=== PATIENT | female | born 1980 | race Caucasian/White ===

== ENCOUNTER 2016-09-12 16:48 | Emergency (ER) | payer SELFPAY ==
[2016-09-12 17:11] VITALS: TEMP 98; BMI 42.3
[2016-09-12] MEDS ORDERED: NS 1,000 ML IV ONE (17:24)
[2016-09-12 18:02] LABS: LEUKOCYTES/URINE NEG (NEGATIVE); NITRITE/URINE NEG (NEGATIVE); RBC/URINE 0-2 (0-5); URINE OCCULT BLOOD NEG (NEG/TRACE); WBC/URINE 0-2 (0-5)
[2016-09-12 18:32] LABS: AUTOMATED BASOPHIL 0.2 % (0-2); AUTOMATED EOSINOPHIL 0.3 % (0-5); AUTOMATED LYMPH 8.3 % (17-44); AUTOMATED MONOCYTE 5.6 % (3-10); AUTOMATED NEUTROPHIL 85.6 % (45-76); MPV 9.1 fL (7.4-10.4)
[2016-09-12 18:35] VITALS: BP 138/62; PULSE 88
[2016-09-12 18:41] LABS: GLUCOSE 96 mg/dL (70-99); SODIUM LEVEL 135 mEq/L (137-146); TOTAL PROTEIN 7.3 G/DL (6.3-8.2)
[2016-09-12 18:49] LABS: BLOOD UREA NITROGEN 10 MG/DL (7-17); CALCIUM 9.1 MG/DL (8.4-10.2); CALCULATED OSMOLALITY 259 MOs/Kg (270-290); CHLORIDE 102 mEq/L (98-107)
--- NOTE | 2016-09-12 18:49 | EDPRACDOC ---
- General Information Chief Complaint: Abdominal Pain Stated Complaint: 12WK PREG/ABD PAIN Time Seen by Provider: 09/12/16 17:20 Information Source: Patient, Family Mode Of Arrival: Car Home Medications: Home Medications Acetaminophen [Mapap] 1,000 mg PO Q8H PRN 09/12/16 Fish Oil/Dha/Epa [Fish Oil 1,200 mg Fish Oil] 1 cap PO DAILY 09/12/16 Vits W-Ca,Fe,FA(<1Mg) [] 1 tab PO DAILY 09/12/16 Allergies/Adverse Reactions: Allergies Allergy/AdvReac Type Severity Reaction Status Date / Time No Known Allergies Allergy Verified 09/12/16 17:08 - History of Present Illness Onset: 0800 HPI: PT SAID THAT SHE IS 14 WEEKS AND HAD A SEVERE PAIN IN HER RIGHT SIDE. THE PT SAID THAT THE PAIN HAS GONE AWAY. SHE HAS NOT YET SEEN AN OBGYN, BUT HAS SEEN HER PCP. THE PT DENIES ANY OTHER SX OTHER THAN SOME LUMPS IN HER RIGHT BREAST THAT SHE HAS NOTICED SINCE SHE'S BEEN . Pain Location: Reports: RLQ Pain Context: Reports: Spontaneous Pain Severity: Mild Pain Quality: Reports: Sharp Last Menstrual Period: 12 weeks preg : Yes Control Method: Reports: None Adult Abdominal History: Reports: Abdominal Surgery Female Abdominal History: Reports: Abdominal Surgery Modifying Factors: improves with: Nothing Female Associated Signs & Symptoms: Reports: Nausea, Vomiting Oral Intake: Normal Urinary Output: Normal ED Past Medical History - History Reviewed No Past Medical History: Yes Patient has no past medical history - Patient Medical History Psychological History: Denies: Depression Surgical History: Reports: Other (CSXN) - Social Medical History Smoking Status: Never smoker ETOH: None Substance Abuse: None Lives In: Home EDM Review of Systems - Review of Systems ROS Negative Except as Marked: Yes All systems reviewed and were negative except as marked Gastrointestinal: Pain - Physical Exam Constitutional: Alert (Awake), No apparent distress Oriented to: Time, Person, Place Last recorded Vital Signs: Last Vital Signs Temp 98.0 F 09/12/16 17:08 Pulse 88 09/12/16 18:34 Resp 20 09/12/16 18:34 BP 138/62 09/12/16 18:34 Pulse Ox 98 09/12/16 18:34 Oxygen Pulse Oxygen Saturation 98 O2 Device Room Air Oxygen Flow Rate Fraction of Inspired Oxygen ( FIO2) - HEENT Head: Normal ( normocephalic) Eye Exam: Normal (PERRL, EOMI, Sclera white) Oropharynx: Normal (Pharynx:Moist without exudate,Gums-no swelling) ENT EAC: Normal TMJ: Normal Nose: No Symptoms Reported (septum midline) Neck: Normal (FROM, trachea at midline) - Respiratory/Cardiovascular Respiratory: Normal - CTA (BBS clear to auscultation without adventitious sounds ) Cardiovascular: Normal (RRR without murmur, gallop or rub) - GI Auscultation: Normal (NABS) Palpation: Normal (Soft,No rebound or guarding, non distended) Tenderness: Non tender Avendano's Sign: Negative - Bladder: Normal External: Normal Vagina: Normal Cervix: Normal Uterus: Enlarged Adnexa: Bilateral: Normal - Musculoskeletal Back: Normal (Non-Tender) Extremities: Normal (Normal tone, Pulses 2+ No cyanosis or edema, FROM) - Integumentary Skin: Normal, Warm, Dry Lymphatics: Normal (no adenopathy) - Neurologic Memory Impaired: Normal Motor Function: Normal (Normal tone, Pulses 2+ No cyanosis or edema, FROM) Cranial Nerve: Normal (CN II-X11 intact sensation, strength 5/5) Cerebellar: Normal Mood Description: Normal Thought: Coherent Perception: Normal ED Procedures - Ultrasound:Limited Abdominal/Renal Indication: Abdominal Pain, Position: Supine Uterus Findings: IUP Interpretation: +FHTS, + MVMT, IUP - Re-evaluation Re-evaluation 1 Re-evaluation Time: 19:06 (STILL NO PAIN) - Results 09/12/16 18:10 09/12/16 18:10 WBC 10.2 xk/uL (3.8-10.8) 09/12/16 18:10 RBC 4.51 xM/uL (4.20-5.40) 09/12/16 18:10 Hgb 12.4 g/dL (12.0-16.0) 09/12/16 18:10 Hct 37.4 % (36-47) 09/12/16 18:10 MCV 83 fL (81-99) 09/12/16 18:10 MCH 27.6 pg (27-32) 09/12/16 18:10 MCHC 33.2 g/dl (33-36) 09/12/16 18:10 RDW 13.7 % (11.5-14.5) 09/12/16 18:10 Plt Count 312 xk/uL (130-400) 09/12/16 18:10 MPV 9.1 fL (7.4-10.4) 09/12/16 18:10 Neut % (Auto) 85.6 % (45-76) H 09/12/16 18:10 Lymph % (Auto) 8.3 % (17-44) L 09/12/16 18:10 [place] % (Auto) 5.6 % (3-10) 09/12/16 18:10 Eos % (Auto) 0.3 % (0-5) 09/12/16 18:10 Baso % (Auto) 0.2 % (0-2) 09/12/16 18:10 Absolute Neuts (auto) 8.67 xk/uL (1.7-8.2) H 09/12/16 18:10 Absolute Lymphs (auto) 0.82 xk/uL (0.65-4.75) 09/12/16 18:10 Sodium 135 mEq/L (137-146) L 09/12/16 18:10 Potassium 4.1 mEq/L (3.5-5.1) 09/12/16 18:10 Chloride 102 mEq/L (98-107) 09/12/16 18:10 Carbon Dioxide 22 mMOL/L (22-33) 09/12/16 18:10 Anion Gap 15 mEq/L (8-16) 09/12/16 18:10 BUN 10 MG/DL (7-17) 09/12/16 18:10 Creatinine 0.40 MG/DL (0.52-1.04) L 09/12/16 18:10 Estimated GFR (MDRD) > 60 mL/min (>=60) 09/12/16 18:10 Glucose 96 mg/dL (70-99) 09/12/16 18:10 Calculated Osmolality 259 MOs/Kg (270-290) L 09/12/16 18:10 Calcium 9.1 MG/DL (8.4-10.2) 09/12/16 18:10 Total Bilirubin 0.6 MG/DL (0.2-1.3) 09/12/16 18:10 AST 19 IU/L (14-36) 09/12/16 18:10 ALT 35 IU/L (9-52) 09/12/16 18:10 Alkaline Phosphatase 93 IU/L (38-126) 09/12/16 18:10 Total Protein 7.3 G/DL (6.3-8.2) 09/12/16 18:10 Albumin 4.0 G/DL (3.5-5.0) 09/12/16 18:10 Urine Color Yellow 09/12/16 17:15 Urine Clarity Clear 09/12/16 17:15 Urine pH 6.0 (5.0-8.0) 09/12/16 17:15 Ur Specific [place] 1.025 (1.003-1.035) 09/12/16 17:15 Urine Protein Neg (NEG/TRACE) 09/12/16 17:15 Urine Glucose (UA) Neg (NEGATIVE) 09/12/16 17:15 Urine Ketones 2+ (NEGATIVE) H 09/12/16 17:15 Urine Occult Blood Neg (NEG/TRACE) 09/12/16 17:15 Urine Nitrite Neg (NEGATIVE) 09/12/16 17:15 Urine Bilirubin Neg (NEGATIVE) 09/12/16 17:15 Urine Urobilinogen <2.0 MG/DL (0-1) 09/12/16 17:15 Ur Leukocyte Esterase Neg (NEGATIVE) 09/12/16 17:15 Urine RBC 0-2 (0-5) 09/12/16 17:15 Urine WBC 0-2 (0-5) 09/12/16 17:15 Ur Epithelial Cells 2+ 09/12/16 17:15 Urine Bacteria 2+ (NEG/FEW) H 09/12/16 17:15 Urine Mucus Large (NEG/OCC) 09/12/16 17:15 Microbiology 09/12/16 17:52 EDU Preparation - Final Vaginal 09/12/16 17:35 Trichomonas Wet [place] - Final Vaginal Lab Results 09/12/16 09/12/16 09/12/16 18:10 18:10 17:15 WBC 10.2 RBC 4.51 Hgb 12.4 Hct 37.4 MCV 83 MCH 27.6 MCHC 33.2 RDW 13.7 Plt Count 312 MPV 9.1 Neut % (Auto) 85.6 H Lymph % (Auto) 8.3 L [place] % (Auto) 5.6 Eos % (Auto) 0.3 Baso % (Auto) 0.2 Absolute Neuts (auto) 8.67 H Absolute Lymphs (auto) 0.82 Sodium 135 L Potassium 4.1 Chloride 102 Carbon Dioxide 22 Anion Gap 15 BUN 10 Creatinine 0.40 L Estimated GFR (MDRD) > 60 Glucose 96 Calculated Osmolality 259 L Calcium 9.1 Total Bilirubin 0.6 AST 19 ALT 35 Alkaline Phosphatase 93 Total Protein 7.3 Albumin 4.0 Urine Color Yellow Urine Clarity Clear Urine pH 6.0 Ur Specific [place] 1.025 Urine Protein Neg Urine Glucose (UA) Neg Urine Ketones 2+ H Urine Occult Blood Neg Urine Nitrite Neg Urine Bilirubin Neg Urine Urobilinogen <2.0 Ur Leukocyte Esterase Neg Urine RBC 0-2 Urine WBC 0-2 Ur Epithelial Cells 2+ Urine Bacteria 2+ H Urine Mucus Large Decision Time to Discharge: 19:06 - Departure Yes I personally saw and evaluated the patient. Disposition: Home Condition: Fair Final Diagnosis: Intrauterine , Round ligament pain Instructions: (ED) Education/Counseling Given To: Patient, Family Member Education/Counseling Given Regarding: Diagnosis, Treatment, Follow Up Referrals: None,No Provider [Primary Care Provider] - One Week Miles Duran MD [Staff Physician] - One Week Prescriptions: No Action Vits W-Ca,Fe,FA(<1Mg) [] 1 tab PO DAILY Fish Oil/Dha/Epa [Fish Oil 1,200 mg Fish Oil] 1 cap PO DAILY Acetaminophen [Mapap] 1,000 mg PO Q8H PRN PRN Reason: Pain
[2016-09-13 21:41] LABS: CHLAMY BY NUCLEIC ACID AMP Negative (Negative)
[2016-09-14 08:31] LABS: GC BY NUCLEIC ACID AMP Negative (Negative)
== END 2016-09-12 19:20 | disposition home or self-care (01) ==
LOC: ED 16:48
DX: O26.891 Other specified pregnancy related conditions, first trimester (principal); Z3A.12 12 weeks gestation of pregnancy; R10.9 Unspecified abdominal pain
CPT/HCPCS: 36415; 80053; 81001; 85025; 87210; 87220; 87491; 87591; 96360; 99282